=== PATIENT | female | born 1975 | race African-American/Black ===

== ENCOUNTER 2019-09-23 23:09 | Emergency (ER) | payer SELFPAY ==
[~2019-09-23] VITALS: Ht 157.5 cm; Wt 50.0 kg
[2019-09-23 23:09] VITALS: BP 119/70
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
--- NOTE | 2019-09-24 00:10 | RAD ---
CT HEAD AND CERVICAL SPINE WO History: Fall. Pain. Comparison: None. Technique: Noncontrast CT imaging was performed of the head and cervical spine. Coronal and sagittal reconstructions were performed. Exposure: One or more of the following individualized dose reduction techniques were utilized for this examination: 1. Automated exposure control 2. Adjustment of the mA and/or kV according to patient size 3. Use of iterative reconstruction technique. Findings: Head CT: No intracranial hemorrhage. No mass effect. No hydrocephalus. Extra-axial spaces are unremarkable. Imaged orbits are unremarkable. Complete opacification of the maxillary sinuses. Left anterior ethmoid and frontal sinus opacification. Mastoid air cells are clear. No acute calvarial fracture. Cervical spine CT: Normal vertebral body height and alignment. No fracture. Moderate degenerative disc changes C5-C6 and C6-C7. Multilevel facet arthropathy. No high-grade canal or neuroforaminal narrowing. Mild paraseptal emphysema. 0.6 cm left thyroid nodule. Impression: Head CT: 1. No acute intracranial abnormality. 2. Paranasal sinus opacification involving the maxillary sinuses, left anterior ethmoid and left frontal sinuses. Cervical spine CT: 1. No acute fracture or subluxation of the cervical spine. 2. Multilevel cervical spondylosis. Electronically signed by: Kevan Russ DO (09/24/2019 12:07 AM) [id number]
[2019-09-24] MEDS ORDERED: DIPH,PERTUSS(ACELL),TET VAC/PF 0.5 ML SYRINGE. VAX IM ONE (00:30)
== END 2019-09-24 00:48 | disposition home or self-care (01) ==
LOC: ER 23:09 → EEVIPCON 23:09 → ER 09-24 00:48
DX: S00.12XA Contusion of left eyelid and periocular area, initial encounter (principal); F10.129 Alcohol abuse with intoxication, unspecified; R60.0 Localized edema; W17.89XA Other fall from one level to another, initial encounter; Y93.89 Activity, other specified; Y92.89 Other specified places as the place of occurrence of the external cause; Y99.8 Other external cause status
CPT/HCPCS: 36415; 70450; 72125; 90471; 90715; 99285